=== PATIENT | male | born 1955 | race African-American/Black ===

== ENCOUNTER 2021-01-28 09:12 | Observation (INO) | payer OTHER ==
[~2021-01-28] VITALS: Ht 177.8 cm; Wt 117.3 kg
[2021-01-28] MEDS ORDERED: TOPROL XL25 MG (09:20)
[2021-01-28] MEDS ORDERED: GLUCOPHAGE500 MG PO (09:20)
[2021-01-28] MEDS ORDERED: CLONIDINE HCL0.1 MG (09:20)
--- NOTE | 2021-01-28 09:37 | NUR ---
FSBS 222
[2021-01-28 09:41] LABS: BASOPHILS 0.3 % (0-2); EOSINOPHILS 0.2 % (0-7); HEMATOCRIT 42.9 % (42.0-54.0); HEMOGLOBIN 14.2 g/dL (13.5-17.5); IMMATURE GRANULOCYTES 0.2 % (0-5); LYMPHOCYTE ABS# 3.57 10x3/uL (1.32-3.57); MCH 27.7 pg (26.0-34.0); MCHC 33.1 g/dL (31.0-37.0); MCV 83.6 fL (80.0-100.0); MEAN PLATELET VOLUME 10.6 fL (7.4-10.4); MONOCYTES 8.2 % (2-11); NEUTROPHIL ABS# 4.98 10x3/uL (1.78-5.38); NEUTROPHILS 53.1 % (40-80); PLATELET COUNT 257 10x3/uL (130-400); RBC 5.13 10x6/uL (4.20-6.10); RDW 15.1 % (11.5-14.5); WBC 9.4 10x3/uL (4.8-10.8)
[2021-01-28 09:55] LABS: APTT 26.5 SECONDS (22.8-39.4); INR 1.01 (0.85-1.17); PROTIME 12.3 SECONDS (11.6-15.0)
[2021-01-28 10:00] LABS: CALC OSMOLALITY 281 mosm/kg (275-300); CALCIUM 9.2 mg/dL (8.5-10.1); CHLORIDE - SERUM 100 mmol/L (98-107); CREATININE - SERUM 0.9 mg/dL (0.6-1.3); POTASSIUM - SERUM 4.3 mmol/L (3.5-5.1); SODIUM 138 mmol/L (136-145); UREA NITROGEN 11 mg/dL (7-18); eGFR NON AFRICAN AMERICAN > 90 mL/min (90-120)
[2021-01-28 10:04] LABS: GLUCOSE 218 mg/dL (74-106)
[2021-01-28 10:17] LABS: ALBUMIN 4.1 g/dL (3.4-5.0); ALKALINE PHOSPHATASE 112 U/L (30-120); ALT (SGPT) 48 U/L (10-68); AMYLASE - SERUM 59 U/L (25-115); BILIRUBIN - TOTAL 0.29 mg/dL (0.2-1.3); CKMB 0.5 U/L (0.0-3.6); CREATINE KINASE 121 UL (21-232); LIPASE 82 U/L (73-393); MAGNESIUM - SERUM 1.7 mg/dL (1.8-2.4); PROTEIN - SERUM 8.7 g/dL (6.4-8.2)
[2021-01-28 10:19] LABS: TROPONIN-I < 0.017 ng/mL (0.000-0.060)
[2021-01-28 10:37] LABS: BILIRUBIN NEGATIVE (NEGATIVE); KETONE SMALL mg/dL (NEGATIVE); NITRITE NEGATIVE (NEGATIVE); UROBILINOGEN NORMAL mg/dL (< 2)
[2021-01-28 10:46] LABS: UDS - AMPHET NEGATIVE QUAL (NEGATIVE); UDS - BARB NEGATIVE QUAL (NEGATIVE); UDS - BENZO NEGATIVE QUAL (NEGATIVE); UDS - COCAINE NEGATIVE QUAL (NEGATIVE); UDS - OPIATE NEGATIVE QUAL (NEGATIVE); UDS - PCP NEGATIVE QUAL (NEGATIVE); UDS - THC NEGATIVE QUAL (NEGATIVE)
[2021-01-28 13:14] VITALS: BP 176/95; Ht 177.8 cm; Wt 117.3 kg
[2021-01-28] MEDS ORDERED: PROCARDIA10 MG PO (13:28)
[2021-01-28] MEDS ORDERED: LIPITOR10 MG PO (14:55)
[2021-01-28] MEDS ORDERED: CLONIDINE HCL0.3 MG PO (15:20)
[2021-01-28] MEDS ORDERED: METOPROLOL TART50 MG PO (15:20)
[2021-01-28 18:42] VITALS: BP 162/95
--- NOTE | 2021-01-28 19:10 | NUR ---
RECEIVED REPORT, WILL ASSUME CARE OF PT, SITTING IN CHAIR, DENIES ANY NEEDS AT THIS TIME, CALL LIGHT IN REACH, WILL CONTINUE PLAN OF CARE
[2021-01-28 21:49] VITALS: BP 174/100
[2021-01-29 02:15] VITALS: BP 192/111
--- NOTE | 2021-01-29 03:25 | NUR ---
recheck bp 174/87
[2021-01-29 06:08] VITALS: BP 179/98
[2021-01-29 06:23] LABS: BASOPHILS 0.2 % (0-2); EOSINOPHILS 0.2 % (0-7); HEMATOCRIT 40.8 % (42.0-54.0); HEMOGLOBIN 13.2 g/dL (13.5-17.5); IMMATURE GRANULOCYTES 0.1 % (0-5); LYMPHOCYTE ABS# 2.84 10x3/uL (1.32-3.57); MCH 27.4 pg (26.0-34.0); MCHC 32.4 g/dL (31.0-37.0); MCV 84.8 fL (80.0-100.0); MEAN PLATELET VOLUME 10.2 fL (7.4-10.4); NEUTROPHIL ABS# 4.65 10x3/uL (1.78-5.38); NEUTROPHILS 57.5 % (40-80); PLATELET COUNT 302 10x3/uL (130-400); RBC 4.81 10x6/uL (4.20-6.10); RDW 15.3 % (11.5-14.5); WBC 8.1 10x3/uL (4.8-10.8)
[2021-01-29 07:12] LABS: ALBUMIN 3.8 g/dL (3.4-5.0); ALKALINE PHOSPHATASE 94 U/L (30-120); ALT (SGPT) 39 U/L (10-68); BILIRUBIN - TOTAL 0.41 mg/dL (0.2-1.3); CALC OSMOLALITY 275 mosm/kg (275-300); CALCIUM 9.1 mg/dL (8.5-10.1); CARBON DIOXIDE 23.5 mmol/L (21.0-32.0); CHLORIDE - SERUM 99 mmol/L (98-107); CREATININE - SERUM 0.9 mg/dL (0.6-1.3); GLUCOSE 192 mg/dL (74-106); POTASSIUM - SERUM 3.6 mmol/L (3.5-5.1); PROTEIN - SERUM 8.1 g/dL (6.4-8.2); SODIUM 136 mmol/L (136-145); UREA NITROGEN 9 mg/dL (7-18); eGFR NON AFRICAN AMERICAN > 90 mL/min (90-120)
--- NOTE | 2021-01-29 07:20 | NUR ---
AM ROUNDS- PT UP TO CHAIR, RESTING COMFORTABLY. RESP EVEN AND NONLABORED ON RA. LT HAND IV SL. ST-116 ON TELE. PT DENIES ANY NEEDS AT THIS TIME. CALL LIGHT IN REACH, WILL CONTINUE PLAN OF CARE.
[2021-01-29 09:09] VITALS: BP 175/109
[2021-01-29 12:17] VITALS: BP 157/101
--- NOTE | 2021-01-29 12:42 | NUR ---
10MG OF APRESOLINE IV GIVEN FOR HIGH BP. UP TO CHAIR, WANTS TO GO HOME.
--- NOTE | 2021-01-29 13:53 | CN ---
PATIENT NAME:CLARI RÍOS MEDICAL RECORD: [id number] : 59 LOCATION:[facility] ADMIT DATE: 01/28/21 ACCOUNT: [id number] CONSULTING PHYSICIAN: ROSARIO ESTES MD REFERRING PHYSICIAN: TIFFANIE BAKER MD DATE OF CONSULTATION: 01/29/2021 HISTORY OF PRESENT ILLNESS: The patient is a 65-year-old -[place] male with multiple medical problems including uncontrolled hypertension, diabetes mellitus, hyperlipidemia, obesity, who presented to the Emergency Room with complaints of dizziness symptoms. The patient was noted to have uncontrolled hypertension with blood pressure 190s/120s. I am asked to evaluate from a cardiovascular standpoint. The patient followed by local [facility]. PAST MEDICAL HISTORY: Significant for, 1. Hypertension -- uncontrolled. 2. Diabetes mellitus. 3. Hyperlipidemia. 4. Obesity. MEDICATIONS: Procardia 30 mg daily, metoprolol 100 mg b.i.d., Catapres 0.3 mg b.i.d., Lipitor 20 mg daily. Metformin 1000 mg b.i.d. Hydralazine p.r.n. PHYSICAL EXAMINATION: GENERAL: Pleasant obese middle-aged black male, sitting in no apparent distress. VITAL SIGNS: Blood pressure 170/100, pulse 90s (regular). HEENT: Sclerae are muddy; conjunctivae pink. NECK: Supple. No appreciated JVD. HEART: Regular rate and rhythm without appreciated murmurs, gallops, rubs. LUNGS: Clear bilaterally. ABDOMEN: Obese. Bowel sounds positive. EXTREMITIES: Negative for edema. NEUROLOGIC: Nonfocal. LABORATORY DATA: White blood cell count 8.1, hemoglobin and hematocrit 13.2 and 40.8, and platelet count is 302. Sodium 136, potassium 3.6, BUN 9, creatinine 0.9. Troponin 0.017 (negative). EKG, sinus tachycardia 110 beats per minute, no acute ST-T wave changes. Urine tox screen negative. ASSESSMENT AND PLAN: 1. Hypertension -- uncontrolled. 2. Diabetes mellitus. 3. Obesity. 4. Hyperlipidemia. PLAN: Continue current medical management at this time, except increase Procardia 60 mg daily. Also, start hydrochlorothiazide 25 mg daily. Recommend continued to titrate antihypertension medication if clinically indicated. No further cardiac workup indicated at this time. CONSULT REPORT [id number] CLARI RÍOS Thank you for allowing me to participate in the care of this patient. TRANSINT:[id number] Voice Confirmation ID: [id number] DOCUMENT ID: [id number] ROSARIO ESTES MD at 1353 CC: [id number] DICTATION DATE: 01/29/21 1025 PRODUCTION PAINTER: 01/29/21 1038 ADM IN [facility] [address] [place] [address]
[2021-01-29 13:58] VITALS: BP 157/93
[2021-01-29] MEDS ORDERED: Procardia XL PO (16:04)
[2021-01-29] MEDS ORDERED: HCTZ25 MG PO (16:04)
[2021-01-29 16:33] VITALS: BP 156/95
--- NOTE | 2021-01-29 17:08 | NUR ---
PROVIDED VERBAL AND WRITTEN DISCHARGE TEACHING TO PT, WHO VERBALIZED UNDERSTANDING REGARDING TEACHING. D/C LT HAND IV WITH CATHETER TIP INTACT. HEART MONITOR REMOVED AND TAKEN TO LAVATORY ATTENDANT. PT REFUSED TO BE WHEELED OUT. LEFT UNIT VIA AMBULATORY WITH ALL BELONGINGS, ACCOMPANIED BY DAUGHTER, SCOTT NOTED.
== END 2021-01-29 17:09 | disposition home or self-care (01) ==
LOC: D.ER 09:12 → OBSVTIME 12:05 → D.M2 12:05
PROVIDERS: Family Medicine; ADMIT Emergency Medicine; ATTEND Emergency Medicine
DX: I10 Essential (primary) hypertension (principal); R42 Dizziness and giddiness; E11.9 Type 2 diabetes mellitus without complications; E78.5 Hyperlipidemia, unspecified; E66.9 Obesity, unspecified; R11.2 Nausea with vomiting, unspecified; Z79.84 Long term (current) use of oral hypoglycemic drugs; F41.9 Anxiety disorder, unspecified